=== PATIENT | female | born 2000 | race American Indian/Alaskan Native ===

== ENCOUNTER 2020-03-05 11:02 | Outpatient (CLI) | payer MEDICAID ==
[2020-03-05 12:56] LABS: Bacteria,Urine 1+ /HPF (Negative); Bilirubin,Urine NEG (Negative); Blood,Urine NEG (Negative); Color,Urine Yellow (Yellow); Mucus,Urine FEW /HPF; Protein,Urine <15 mg/dL mg/dL (Negative)
[2020-03-05] MEDS: LACTATED RINGERS 1,000 ML IV SCH ×3 (13:42→15:14)
[2020-03-05] MEDS ORDERED: LACTATED RINGERS 500 ML IV ONE (15:00)
[2020-03-05] MEDS: TERBUTALINE 1 MG/1 ML INJ SUB-Q SCH ×3 (15:12→17:48)
[2020-03-05 17:49] VITALS: BP 131/62
== END 2020-03-05 18:49 | disposition home or self-care (01) ==
LOC: TRG 11:02 → APU 11:03 → TRG 18:49
PROVIDERS: ATTEND Obstetrics & Gynecology
DX: O62.9 Abnormality of forces of labor, unspecified (principal); Z3A.34 34 weeks gestation of pregnancy
CPT/HCPCS: 59025; 81001; 96360; 96361; 96372; J3105; J7120

== ENCOUNTER 2020-03-13 17:58 | Outpatient (CLI) | payer MEDICAID ==
[2020-03-13 18:40] VITALS: BP 130/58
[2020-03-13 19:56] LABS: Bacteria,Urine 1+ /HPF (Negative); Bilirubin,Urine NEG (Negative); Blood,Urine NEG (Negative); Color,Urine Straw (Yellow); Protein,Urine <15 mg/dL mg/dL (Negative); Urobilinogen,Urine < 2.0 mg/dL (<2.0)
[2020-03-13] MEDS ORDERED: LACTATED RINGERS 500 ML IV ONE (20:00)
== END 2020-03-13 20:27 | disposition home or self-care (01) ==
LOC: APU 17:58 → TRG 17:58
PROVIDERS: ATTEND Obstetrics & Gynecology
DX: O26.893 Other specified pregnancy related conditions, third trimester (principal); M54.5 Low back pain; R10.2 Pelvic and perineal pain; Z3A.36 36 weeks gestation of pregnancy
CPT/HCPCS: 59025; 81001